=== PATIENT | male | born 1950 | race Caucasian/White ===

== ENCOUNTER 2024-12-08 05:48 | Inpatient (IN) | payer MEDICARE, BC, SELFPAY ==
[2024-12-08] VITALS (14 sets, daily range): BP systolic 114–179; BP diastolic 55–90; PULSE 60–90; RESP 10–29; TEMP 36.1–39.7; O2SAT 93–98; BMI 42.3
--- NOTE | 2024-12-08 06:16 | XR_ITS ---
Examination: AP chest single view Technique one AP portable upright chest single view Date and time: December 08, 2024, 0643 hrs., Comparison December 22, 2019 Indications: Sepsis protocol, sepsis alert today Findings: Diffuse left lung pneumonia. Right perihilar right basilar pneumonia. Mild heart failure with mild enlargement cardiac contour and prominent vascular congestion Cardiac leads satisfactory position Prominent osteopenia Impression: Significant bilateral pneumonia
--- NOTE | 2024-12-08 06:17 | XR_ITS ---
Examination: CTA chest with intravenous contrast 2-D reconstructions 3-D reconstructions, vascular Date and time of exam: December 08, 2024, 0848 hours INDICATIONS: Chest pain shortness of breath today CTDI: vol (mGy) 16.3 DLP: (mGycm) 590 Technique: Multiple axial sections of the thorax have been obtained. 3 mm slice thickness, from below the hemidiaphragms to above the apices of the lungs. Mediastinal and lung density settings have been obtained. 2-D sagittal and coronal reconstructions. 3-D angiographic renderings, 3-D volume renderings, 3D post processing, vascular maximum intensity projections obtained. Contrast administered is 100 cc Isovue-370. Low dose protocols were performed. One or more of the following dose reduction techniques were used; automated exposure control, adjustment of the mA and/or KV according to patient size, use of iterative reconstruction technique. Findings: No thoracic aortic aneurysm dilatation or dissection No pulmonary artery emboli Extensive left lung pneumonia Significant right base pneumonia No visualized liver or splenic lesion Suspicious for tiny gallstones No pancreatic mass Extensive chronic left kidney IMPRESSION: Negative for pulmonary artery emboli Extensive left lung pneumonia Significant right base pneumonia Recommend hepatobiliary sonography to exclude gallstones
[2024-12-08 06:30] LABS: Collection Type, Urine Clean Catch; Squamous Epithelial Cell,Urine 0 /hpf (0-5)
[2024-12-08] MEDS: PIPER/TAZO INJ 4.5 GM in SODIUM CHLORIDE 0.9% (POP) 100 ML IV (06:30)
[2024-12-08 06:32] LABS: Lactate (Lactic Acid) 2.2 mMol/L (0.4-2.0)
--- NOTE | 2024-12-08 06:33 | PD.EDSOB ---
ED SOB =RME/HPI General Chief Complaint: Shortness of Breath/Dyspnea Stated Complaint: SOB Time Seen by Provider: 12/08/24 06:19 Source: patient and EMS Arrival date/time: 12/08/24 05:48 Mode of arrival: EMS Limitations: no limitations RME / HPI RME / HPI Narrative: Patient is a 74-year-old male that seen emerged from concerns for shortness of breath. Patient has a history of CHF takes a diuretic at home, atrial fibrillation currently on Eliquis, hyperlipidemia. Patient has never had a heart attack or cardiac procedures. States that over the last couple days she has had worsening shortness of breath. Patient is chronically oxygen dependent, usually takes 4 L however is requiring 15 L by nonrebreather. Oxygen saturation at the scene was 80%. Was recently diagnosed with COVID. Denies drugs alcohol smoking recent travel sick contacts. No chest pain palpitations abdominal pain dysuria hematuria melena bloody stools. Patient follows with Dr. Chavez in [place]. Related Data Home Medications ?Medication ?Instructions ?Recorded ?Confirmed rosuvastatin 10 mg tablet (Crestor) 10 mg PO QDAY 07/13/18 12/17/19 metoprolol tartrate 25 mg tablet 25 mg PO QDAY 12/17/19 12/17/19 Previous Rx's ?Medication ?Instructions ?Recorded apixaban 2.5 mg tablet (Eliquis) 5 mg (2 x 2.5 mg) PO BID #60 tabs 12/19/19 dexamethasone 6 mg tablet 6 mg PO QDAY #7 tabs 12/19/19 (Decadron) Allergies Allergy/AdvReac Type Severity Reaction Status Date / Time prochlorperazine Allergy Mild Nausea Verified 12/03/19 10:33 ED Exam General Limitations: Present no limitations General appearance: Present alert and other Head Head exam: Present atraumatic and normocephalic Eye Eye exam: Present normal appearance, PERRL and EOMI ENT ENT exam: Present normal exam and normal oropharynx Neck Neck exam: Present normal inspection and full ROM Chest Chest inspection: Present normal inspection and symmetric chest wall rise; Absent tenderness Respiratory Respiratory exam: Present respiratory distress and accessory muscle use; Absent wheezes or stridor Cardiovascular Cardiovascular exam: Present tachycardia Abdominal Exam Abdominal exam: Present soft; Absent distention, tenderness, guarding or rebound Extremities Exam Extremities exam: Present normal inspection Neurological Exam Neurological exam: Present alert, oriented X3 and CN II-XII intact Skin Skin exam: Present warm and diaphoresis Course Orders Category Date Time Status Bedside Blood Glucose NOW Care 12/08/24 06:16 Active Bedside COVID-19 Antigen Test NOW Care 12/08/24 06:18 Completed Bedside Influenza A&B Antigen Test NOW Care 12/08/24 06:[address] Screening NOW Care 12/08/24 06:17 Active Check And Transfer Beader Q4H START 00 Care 12/08/24 06:16 Active Insert IV NOW Care 12/08/24 06:16 Active Strict Intake and Output Routine Care 12/08/24 06:[address] angio chest Stat Exams 12/08/24 06:17 Completed XR chest 1V SEPSIS PROTOCOL Stat Exams 12/08/24 06:16 Completed BNP [B-Type Natriuretic Peptide] Stat Lab 12/08/24 06:19 Completed Blood Culture (Lab) Stat Lab 12/08/24 06:19 Received CBC Stat Lab 12/08/24 06:19 Completed Comprehensive Metabolic Panel Stat Lab 12/08/24 06:19 Completed Lactate (Lactic Acid) Stat Lab 12/08/24 06:19 Completed Lactic Acid, 3 HR Stat Lab 12/08/24 10:05 Completed Partial Thromboplastin Time Stat Lab 12/08/24 06:19 Completed Procalcitonin Stat Lab 12/08/24 06:19 Completed Prothrombin Time with INR Stat Lab 12/08/24 06:19 Completed Troponin I Stat Lab 12/08/24 06:19 Completed Urinalysis Stat Lab 12/08/24 06:23 Completed Urine Culture Stat Lab 12/08/24 06:23 Received Morphine* Inj Med 12/08/24 09:02 Discontinued 4 mg IVP STAT STA Piper/Tazo Inj [Zosyn Inj] 4.5 gm Med 12/08/24 06:16 Discontinued Sodium Chloride 0.9% (Pop) [NS 0.9% mini bag] 100 ml IV STAT Vancomycin Pharmacy to Dose Med 12/08/24 06:16 Discontinued 1 each IV STAT STA Vancomycin/Ns 1 gm Ivpb 200 ml Med 12/08/24 06:30 Discontinued IV X1 Vancomycin/Ns 1 gm Ivpb 200 ml Med 12/08/24 08:10 Discontinued IV X1 EKG (RT) Stat RT 12/08/24 06:16 Ordered Oxygen Delivery NOW RT 12/08/24 06:16 Active Vital Signs Vital signs: Vital Signs Temperature 103.4 F H 12/08/24 06:05 Respiratory Rate 27 H 12/08/24 06:05 Blood Pressure 179/86 H 12/08/24 06:05 Pulse Oximetry (%) 95 12/08/24 06:05 Oxygen Delivery Method Oxy Mask 12/08/24 06:05 Oxygen Flow Rate 15 12/08/24 06:05 Shortness of Breath / Dyspnea [facility] Narrative [facility] Narrative:: Patient is a 74-year-old male is in the emerged from concerns for shortness of breath. Vital signs and exam as listed. Concern for COVID, pneumonia, CHF exacerbation, ACS arrhythmia among others. Ordered labs EKG chest x-ray. Also ordered CT angio of the chest. Patient is compliant with his Eliquis. Patient was immediately placed in resuscitation room, IV access obtained. Patient placed a surveillance system monitor. Patient provided with supplemental oxygen. 6:37a patient satting 98% on nonrebreather. Is breathing more comfortable. GCS 15. 10:58a patient comfortable now on 5 L nasal cannula. Not in distress. Labs with evidence of leukocytosis 15.1, left shift of 93%. Patient did receive broad-spectrum antibiotics. Patient without any significant acute electrolyte abnormalities, no evidence of renal dysfunction. No liver abnormalities. Troponin not elevated, BNP 165, previously normal. Urinalysis with 4 red blood cells, otherwise no signs of infection. LFTs normal. Chest x-ray was significant bibasilar pneumonia. CT angio chest with again redemonstration of pneumonia, recommendation to get right upper quadrant ultrasound for evaluation of gallstones. Patient does not have any abdominal pain, LFTs are normal. Will order ultrasound and consult hospitalist for admission. Patient data External records reviewed:: [facility] previous records and EMS form Clinical information provided by:: patient Social determinants that could affect healthcare access:: none Patient has the following chronic illnesses:: See MDM How is presenting disease/condition affected by chronic disease/condition?: exacerbated by Evaluation data The following diagnostics were reviewed and interpreted by me:: lab results, radiology exam(s) and EKG tracing(s) Lab and/or radiology exams considered but not ordered:: None Interpretation Summary: See MDM Medications / Prescriptions Medications or Prescriptions considered but not ordered:: None Medication administrations:: Medication Administration History Discontinued Medications Piperacillin Sod/Tazobactam (Sod 4.5 gm/ Sodium Chloride) 100 mls @ 200 mls/hr IV STAT STA; Protocol Stop: 12/08/24 06:45 Last Infusion: 12/08/24 07:15 Dose: Infused Documented By: Admin: 12/08/24 06:30 Dose: 200 mls/hr Documented By: JACKY Vancomycin/Sodium Chloride (Vancomycin/Ns 1 Gm Ivpb) 200 mls @ 120 mls/hr IV X1 ONE Stop: 12/08/24 08:09 Last Infusion: 12/08/24 08:35 Dose: Infused Documented By: Admin: 12/08/24 06:55 Dose: 120 mls/hr Documented By: WO Vancomycin/Sodium Chloride (Vancomycin/Ns 1 Gm Ivpb) 200 mls @ 120 mls/hr IV X1 ONE Stop: 12/08/24 09:49 Last Admin: 12/08/24 08:43 Dose: Not Given Documented By: KANDIS Non-Admin Reason: Duplicate Medication on eMAR Morphine Sulfate (Morphine Sulf Inj 4 Mg/Ml Vial) 4 mg IVP STAT STA Stop: 12/08/24 09:03 Last Admin: 12/08/24 09:09 Dose: 4 mg Documented By: KANDIS Pharmacy Consult (Vancomycin Pharmacy To Dose 1 Each Each) 1 each IV STAT STA Stop: 12/08/24 06:17 Last Admin: 12/08/24 07:31 Dose: Not Given Documented By: KANDIS Non-Admin Reason: Duplicate Medication on eMAR See above Consultations Consultation(s) initiated? (list below): Yes Consultation #1 (Physician, Specialty, Details): see above Diagnosis Shortness of Breath Differential Diagnosis: other (see mdm ) Most likely diagnosis given after review of the tests above:: sepsis, pneumonia Admission Request Was there a request for admission?: Yes Admission Attestation Admission request attestation: Discussed case with Dr. Solis Hospitalist service regarding admission. Discussed patients ED course, exam findings, labs, and radiology results. The Hospitalist [agrees] to accept the patient for admission. Disposition Plan Disposition Plan: Admit Critical Care Time Critical Care Time Critical Care Time: Yes Total Critical Care Time (min.): 45 Attestation: I spent 45 minutes of critical care time with this patient not including reportable procedures. There was an acute impairment of an organ system with a high probability of imminent or life threatening deterioration in the patient's condition. Interventions and changes required in the course of therapy are located in the chart. Time involved was spent in direct patient care, reviewing ancillary data, old records, consulting with decision makers, EMS, other doctors, giving orders and documenting. Discharge Plan Prescriptions/Referrals Prescriptions/Med Rec: No Action metoprolol tartrate 25 mg Tablet 25 mg PO QDAY Rx Instructions: last taken about a month ago, run out. Pt not very sure of dose and if it was tartrate or succinate. He said he was suppose to see Dr. Mccloud for follow up but because of the waters virus wasn't able to. Eliquis 2.5 mg Tablet 5 mg PO BID Qty: 60 0RF dexamethasone [Decadron] 6 mg tablet 6 mg PO QDAY Qty: 7 0RF rosuvastatin [Crestor] 10 mg Tablet 10 mg PO QDAY Referrals: Irwin Wheeler MD [Primary Care Provider, Family Practice] - In 1 week Patient/Caregiver Discharge Instructions Print Language: Vietnamese
[2024-12-08 06:36] LABS: Bilirubin,Urine Negative (Negative); Blood,Urine 1+ (Negative); Clarity,Urine Clear (Clear/Hazy); Color,Urine Drk-Yellow (Lt Yel-Yel); Glucose, Urine Negative (Negative); Ketones,Urine Negative (Negative); Leukocyte Esterase,Urine Negative (Negative); Nitrite,Urine Negative (Negative); PH,Urine 6.0 (5.0-7.0); Protein,Urine 1+ (Neg - Trace); RBC,Urine 4 /hpf (0-3); Specific Gravity,Urine 1.021 (1.001-1.035); Urobilinogen,Urine Negative mg/dL (0.0-1.0); WBC,Urine 1 /hpf (0-5)
[2024-12-08 06:38] LABS: Basophils # (Auto) 0.0 Thou/mm3 (0.0-0.2); Basophils % (Auto) 0 % (0-2.5); Eosinophils # (Auto) 0.0 Thou/mm3 (0.0-0.5); Eosinophils % (Auto) 0 % (0-10); Hematocrit 38.7 % (41.0-53.0); Hemoglobin 13.0 g/dL (13.5-16.0); Immature Granulocytes Auto 0.07 Thou/mm3 (0.00-0.00); Lymphocytes # (Auto) 0.4 Thou/mm3 (1.0-4.8); Lymphocytes % (Auto) 3 % (10-50); Mean Corpuscular HGB Conc 33.6 g/dl (31.0-37.0); Mean Corpuscular Hemoglobin 31.1 pg (25.0-35.0); Mean Corpuscular Volume 93 fL (80-100); Monocytes # (Auto) 0.7 Thou/mm3 (0.0-0.8); Monocytes % (Auto) 4 % (0-12); Neutrophils # (Auto) 13.9 Thou/mm3 (1.8-7.7); Neutrophils % (Auto) 93 % (37-80); Nucleated Red Blood Cell # 0.00 Thou/mm3 (0.00-0.00); Nucleated Red Blood Cell % 0 /100 WBC (0); Platelet Count 251 Thou/mm3 (140-440); RDW Standard Deviation 47.5 fL (35.1-43.9); Red Blood Count 4.18 Miln/mm3 (4.50-5.90); White Blood Count 15.1 Thou/mm3 (3.8-10.6)
[2024-12-08 06:52] LABS: INR 1.1 (0.9-1.3); Partial Thromboplastin Time 28.3 Seconds (22.0-36.0); Prothrombin Time 11.8 Seconds (9.0-12.2)
[2024-12-08] MEDS: VANCOMYCIN/NS 1 GM IVPB 200 ML IV (06:55)
[2024-12-08 07:01] LABS: Alanine Aminotransferase 18 U/L (10-49); Albumin, Serum 4.3 gm/dL (3.4-4.8); Albumin/Globulin Ratio 1.5 (1.2-2.2); Alkaline Phosphatase 59 U/L (46-116); Anion Gap 9 (7-16); Aspartate Amino Transferase 33 U/L (0-34); BUN/Creatinine Ratio 13 Ratio (12-20); Bilirubin,Total 0.4 mg/dL (0.3-1.2); Blood Urea Nitrogen 13 mg/dL (9-23); Calcium 10.3 mg/dL (8.3-10.6); Calcium (Corrected) 10.3 mg/dL (8.5-10.1); Carbon Dioxide 27.6 mMol/L (20.0-31.0); Chloride 98 mMol/L (98-107); Creatinine (Component) 1.0 mg/dL (0.6-1.3); Estimated Creatinine Clearance 93.3 mL/min (>60); Globulin 2.9 gm/dL (2.3-3.5); Glucose 202 mg/dL (74-106); Osmolality,Calculated 276 (275-295); Potassium 3.8 mMol/L (3.4-5.1); Procalcitonin 1.06 ng/ml (0.0-0.49); Sodium 135 mMol/L (136-145); Total Protein 7.2 gm/dL (5.7-8.2); Troponin I 0.038 ng/mL (0.0-0.045); eGFR > 60 See Note
[2024-12-08 07:04] LABS: B-Type Natriuretic Peptide 165 pg/mL (0-100)
--- NOTE | 2024-12-08 07:57 | PC.NURSE ---
Report received from pm nurse, patient lying in gurney in semifowler's position. Patient alert and oriented x 3 to er with c/o increased shortness of breath x 3 days. Patient c/o body aches and increases sob x 2-3 days, patient denies cough , skin is slightly pale, cool and diaphoretic, RR 28bpm. Patient awaiting ct exam, call light within reach.
[2024-12-08] MEDS: MORPHINE SULF INJ 4 MG/ML VIAL IVP (09:09)
[2024-12-08 09:26] LABS: Reflex Lactate? Y
[2024-12-08 10:14] LABS: Lactic Acid, 3 HR 1.5 mMol/L (0.4-2.0)
--- NOTE | 2024-12-08 11:00 | XR_ITS ---
Examination: Abdomen sonogram, Limited Date and time of exam: December 08, 2024 1343 hours INDICATIONS: CT examination chest today suspicious for tiny gallstones Technique: Real-time servin scale transabdominal sonographic images of the upper abdomen obtained. Findings: No definite gallstones Gallbladder is contracted Gallbladder wall 0.4 cm Common bile duct 0.4 cm Pancreas 3.2 cm Liver 20.7 cm fatty infiltration Portal vein measures 13 mm Normal hepatopedal portal venous flow Patent IVC IMPRESSION: Recommend repeating the gallbladder portion of the study with fasting Moderate hepatomegaly
--- NOTE | 2024-12-08 12:01 | PD.RESHP ---
Documentation for date of: 12/08/24 [facility] History of Present Illness History of present illness: Harris Ibrahim is a 74-year-old male with a past medical history of atrial fibrillation status post ablation and pacemaker on Eliquis, [id number] smoking history (quit 20 years ago), on nocturnal oxygen, chronic pain from previous spinal surgery, hypertension, hyperlipidemia who presented for shortness of breath. For the last 3 days patient has experienced progressive shortness of breath, fever, chills, and sore throat. He states that his had been sick with COVID and denies any recent travel. In the ED, BP 179/86, respiratory rate 27, temp of 103.4 ?F, and saturating 95% on 15 L oxy mask. Labs showed WBC 15.1, Pro-Imer 1.06, lactate of 2.2. Bedside COVID test positive. CXR showed significant bilateral pneumonia, CTA chest showed extensive left lung and right base pneumonia but negative for PE. Abdominal ultrasound showed moderate hepatomegaly. Blood and urine cultures taken, given 1 dose of Vanco and Zosyn in ED as well as morphine. Admitted for acute hypoxic respiratory failure secondary to COVID-pneumonia. PMHx: atrial fibrillation status post ablation and pacemaker on Eliquis, [id number] smoking history (quit 20 years ago), chronic pain from previous spinal surgery, hypertension, hyperlipidemia Medications: unsure, pending med rec SHx: [id number] smoking history but quit 20 years ago, previous alcohol consumption, no elicit drug use PSHx: previous spinal surgeries now on opioid medications at home Review of Systems Review of Systems Systems Reviewed: All systems reviewed, normal except as documented Exam Vital Signs Temp Pulse Resp BP Pulse Ox O2 Del Method O2 Flow Rate 98.6 F 61 22 H 122/55 L 97 Oxy Mask 5 12/08/24 11:23 12/08/24 11:23 12/08/24 11:23 12/08/24 11:23 12/08/24 11:23 12/08/24 11:12/08/24 11:23 Narrative Exam General: AOx3, mild distress but able to speak full sentences, diaphoretic and on oxymask HEENT: NC/AT, mucous membranes moist, bilateral sclera anicteric Cardiovascular: regular rate and rhythm, S1/S2 present, no murmurs appreciated Pulmonary: clear to auscultation bilaterally, no rales/rhonchi/wheezes Abdominal: obese, soft, non-tender, non-distended, no rebound/guarding, normal bowel sounds present Musculoskeletal: normal ROM, no peripheral edema Skin: warm and dry, intact, no rashes Neuro: CN II-XII intact, no focal deficits Results: Labs 12/09/24 05:36 12/09/24 05:36 Labs: Short CBC 12/08/24 Range/Units 06:19 WBC 15.1 H (3.8-10.6) Thou/mm3 Hgb 13.0 L (13.5-16.0) g/dL Hct 38.7 L (41.0-53.0) % Plt Count 251 (140-440) Thou/mm3 BMP 12/08/24 06:19 Sodium 135 L Potassium 3.8 Chloride 98 Carbon Dioxide 27.6 BUN 13 Creatinine 1.0 Glucose 202 H Calcium 10.3 Cardiac Enzymes 12/08/24 Range/Units 06:19 Troponin I 0.038 (0.0-0.045) ng/mL Liver Function 12/08/24 Range/Units 06:19 Total Bilirubin 0.4 (0.3-1.2) mg/dL AST 33 (0-34) U/L ALT 18 (10-49) U/L Alkaline Phosphatase 59 (46-116) U/L Albumin 4.3 (3.4-4.8) gm/dL Urine 12/08/24 Range/Units 06:23 Urine Color Drk-Yellow A (Lt Yel-Yel) Urine Clarity Clear (Clear/Hazy) Urine pH 6.0 (5.0-7.0) Ur Specific [place] 1.021 (1.001-1.035) Urine Protein 1+ A (Neg - Trace) Urine Glucose (UA) Negative (Negative) Quality Measures Quality Measures VTE prophylaxis Advance care planning discussed with:: patient Medications Home Medications and Allergies Home Medications ?Medication ?Instructions ?Recorded ?Confirmed ?Type rosuvastatin 10 mg tablet (Crestor) 10 mg PO QDAY 07/13/18 12/08/24 History apixaban 5 mg tablet (Eliquis) 5 mg PO Q12H 12/08/24 12/08/24 History hydralazine 50 mg tablet 50 mg PO BID 12/08/24 12/08/24 History olmesartan 20 mg tablet 20 mg PO DAILY 12/08/24 12/08/24 History oxycodone 30 mg tablet 30 mg PO 5 TIMES DAILY 12/08/24 12/08/24 History prednisone 10 mg tablet 10 mg PO 12/08/24 History tramadol 300 mg tablet,extended 300 mg PO Q24H 12/08/24 12/08/24 History release 24 hr Allergies Allergy/AdvReac Type Severity Reaction Status Date / Time prochlorperazine Allergy Mild Nausea Verified 12/03/19 10:33 Visit Medications Acetaminophen (Acetaminophen 325 Mg Tablet) 650 mg PO Q6H PRN PRN Reason: PAIN OR FEVER > 100.4 Stop: 01/07/25 11:50 Remdesivir 200 mg/ Sodium (Chloride) 250 mls @ 250 mls/hr IV X1 ONE; Protocol Stop: 12/08/24 12:55 Remdesivir 100 mg/ Sodium (Chloride) 100 mls @ 100 mls/hr IV Q24H NR; Protocol Stop: 12/12/24 14:59 Ondansetron HCl (Ondansetron Inj 2 Mg/Ml Inj 2 Ml) 4 mg IVP Q6H PRN; Protocol PRN Reason: NAUSEA OR VOMITING Stop: 01/07/25 11:50 Discontinued Medications Piperacillin Sod/Tazobactam (Sod 4.5 gm/ Sodium Chloride) 100 mls @ 200 mls/hr IV STAT STA; Protocol Stop: 12/08/24 06:45 Last Infusion: 12/08/24 07:15 Dose: Infused Vancomycin/Sodium Chloride (Vancomycin/Ns 1 Gm Ivpb) 200 mls @ 120 mls/hr IV X1 ONE Stop: 12/08/24 08:09 Last Infusion: 12/08/24 08:35 Dose: Infused Vancomycin/Sodium Chloride (Vancomycin/Ns 1 Gm Ivpb) 200 mls @ 120 mls/hr IV X1 ONE Stop: 12/08/24 09:49 Last Admin: 12/08/24 08:43 Dose: Not Given Morphine Sulfate (Morphine Sulf Inj 4 Mg/Ml Vial) 4 mg IVP STAT STA Stop: 12/08/24 09:03 Last Admin: 12/08/24 09:09 Dose: 4 mg Pharmacy Consult (Vancomycin Pharmacy To Dose 1 Each Each) 1 each IV STAT STA Stop: 12/08/24 06:17 Last Admin: 12/08/24 07:31 Dose: Not Given Assessment & Plan Plan Harris Ibrahim is a 74-year-old male with a past medical history of atrial fibrillation status post ablation and pacemaker on Eliquis, [id number] smoking history (quit 20 years ago), on nocturnal oxygen, chronic pain from previous spinal surgery, hypertension, hyperlipidemia who is admitted for acute hypoxic respiratory failure secondary to COVID-pneumonia. #Acute hypoxic respiratory failure secondary to #COVID-pneumonia #Superimposed Bacterial pneumonia #[id number] smoking history on nocturnal oxygen Last 3 days patient has experienced progressive shortness of breath, fever, chills, and sore throat. He states that his had been sick with COVID and denies any recent travel. In the ED, BP 179/86, respiratory rate 27, temp of 103.4 ?F, and saturating 95% on 15 L oxy mask. Labs showed WBC 15.1, Pro-Imer 1.06, lactate of 2.2. Bedside COVID test positive. CXR showed significant bilateral pneumonia, CTA chest showed extensive left lung and right base pneumonia but negative for PE. ? Remdesivir 200 mg x 1, 100 mg IV daily after ? Decadron 6 mg IV daily ? Rocephin and azithromycin for superimposed bacterial infection ? Follow-up blood cultures ? Supplemental oxygen as needed #Atrial fibrillation status post ablation and pacemaker Currently rate less than 110. 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 ? Eliquis 5 mg twice daily ? Pending med rec for rate control medications #Hyperglycemia #Type 2 diabetes mellitus ? Follow-up A1c ? SSI given that patient is on high-dose steroids #Hyperlipidemia ? Pending med rec #Chronic Back pain - Resumed home analgesics Hospital management: Disposition: on remdesivir/decadron and rocephin/azithro for AHRF secondary to COVID pneumonia Fluids: not indicated Diet: cardiac Lines: PIV DVT prophylaxis: eliquis 5 mg PO BID GI prophylaxis: PPI given that patient is on high-dose steroids CODE STATUS: full code ----- Plan discussed with attending physician Dr. Kemi Cee MD PGY-2 Internal Medicine Attending Provider Attestation/Addendum I attest that I was physically present for the evaluation, physical examination, lab and imaging review of the patient with the residents. I discussed the case with the residents and agree with the findings and plans of care as documented above. After examination of the patient and review of the clinical data I feel that this patient needs admission to the hospital for further treatment/evaluation. Max Mcmullen MD
--- NOTE | 2024-12-08 12:30 | PC.NURSE ---
Called pharmacy to bring Remdesiver to er not in our er pyxis,
[2024-12-08] MEDS: DEXAMETHASONE SOD PHOS INJ 4 MG/ML VIAL 6 MG IV (12:37)
[2024-12-08] MEDS: cefTRIAXone/D5w 1gm IV premix 1 GM/50 ML BAG IV (12:37)
[2024-12-08] MEDS: AZITHROMYCIN INJ 500 MG in SODIUM CHLORIDE 0.9% 250 ML 250 ML 250 MG IV (13:26)
[2024-12-08] MEDS: oxyCODONE HCL 5 MG IR TAB 30 MG PO ×2 (13:41→20:43)
[2024-12-08] MEDS: REMDESIVIR INJ 200 MG in SODIUM CHLORIDE 0.9% 250 ML 250 ML 250 MG IV (14:29)
[2024-12-08] MEDS: INSULIN LISPRO (AdmeLOG) 1 UNIT/0.01 ML UNIT SC (17:06)
[2024-12-08] MEDS: APIXABAN 2.5 MG TABLET 5 MG PO (20:45)
[2024-12-08] MEDS: ATORVASTATIN CALCIUM 20 MG TABLET 40 MG PO (20:45)
[2024-12-09] VITALS (12 sets, daily range): BP systolic 116–174; BP diastolic 66–90; PULSE 61–115; RESP 15–22; TEMP 35.9–36.9; O2SAT 92–97; BMI 43.4
[2024-12-09] MEDS: oxyCODONE HCL 5 MG IR TAB 30 MG PO ×4 (05:48→23:52)
[2024-12-09 05:58] LABS: Basophils # (Auto) 0.0 Thou/mm3 (0.0-0.2); Basophils % (Auto) 0 % (0-2.5); Eosinophils # (Auto) 0.0 Thou/mm3 (0.0-0.5); Eosinophils % (Auto) 0 % (0-10); Hematocrit 36.3 % (41.0-53.0); Hemoglobin 12.2 g/dL (13.5-16.0); Immature Granulocytes Auto 0.09 Thou/mm3 (0.00-0.00); Lymphocytes # (Auto) 0.9 Thou/mm3 (1.0-4.8); Lymphocytes % (Auto) 5 % (10-50); Mean Corpuscular HGB Conc 33.6 g/dl (31.0-37.0); Mean Corpuscular Hemoglobin 31.4 pg (25.0-35.0); Mean Corpuscular Volume 93 fL (80-100); Monocytes # (Auto) 0.6 Thou/mm3 (0.0-0.8); Monocytes % (Auto) 3 % (0-12); Neutrophils # (Auto) 15.7 Thou/mm3 (1.8-7.7); Neutrophils % (Auto) 91 % (37-80); Nucleated Red Blood Cell # 0.00 Thou/mm3 (0.00-0.00); Nucleated Red Blood Cell % 0 /100 WBC (0); Platelet Count 241 Thou/mm3 (140-440); RDW Standard Deviation 47.3 fL (35.1-43.9); Red Blood Count 3.89 Miln/mm3 (4.50-5.90); White Blood Count 17.2 Thou/mm3 (3.8-10.6)
[2024-12-09 06:19] LABS: Anion Gap 7 (7-16); BUN/Creatinine Ratio 14 Ratio (12-20); Blood Urea Nitrogen 11 mg/dL (9-23); Calcium 9.2 mg/dL (8.3-10.6); Carbon Dioxide 29.2 mMol/L (20.0-31.0); Cardiac Risk Estimate 1.8 RATIO (4.0-6.7); Chloride 100 mMol/L (98-107); Cholesterol 110 mg/dL (132-200); Creatinine (Component) 0.8 mg/dL (0.6-1.3); Estimated Creatinine Clearance 118.4 mL/min (>60); Glucose 175 mg/dL (74-106); Glucose Estimated Average 120 mg/dL (80-131); HDL Cholesterol 62 mg/dL (40-60); Hemoglobin A1C 5.8 % Hgb (4.8-6.0); LDL Cholesterol,Calculated 38 mg/dL (0-130); Magnesium 1.8 mg/dL (1.6-2.6); Osmolality,Calculated 275 (275-295); Phosphorous 2.5 mg/dL (2.4-5.1); Potassium 4.5 mMol/L (3.4-5.1); Sodium 136 mMol/L (136-145); Thyroid Stimulating Hormone 0.27 uIU/mL (0.55-4.78); Triglycerides 48 mg/dL (30-150); eGFR > 60 See Note
[2024-12-09] MEDS: APIXABAN 2.5 MG TABLET 5 MG PO ×2 (08:33→21:04)
[2024-12-09] MEDS: cefTRIAXone/D5w 1gm IV premix 1 GM/50 ML BAG IV (08:33)
[2024-12-09] MEDS: INSULIN LISPRO (AdmeLOG) 1 UNIT/0.01 ML UNIT SC ×4 (08:33→21:05)
[2024-12-09] MEDS: LOSARTAN POTASSIUM 25 MG TABLET 100 MG PO (08:34)
[2024-12-09] MEDS: DEXAMETHASONE SOD PHOS INJ 4 MG/ML VIAL 6 MG IV (08:34)
[2024-12-09] MEDS: AZITHROMYCIN INJ 500 MG in SODIUM CHLORIDE 0.9% 250 ML 250 ML 250 MG IV (09:43)
--- NOTE | 2024-12-09 10:14 | PC.SS ---
Addendum entered by JAEL Nye 12/09/24 10:19: SS update: on oxygen and IV antibiotics. Original Note: Patient is a 74 year old male presenting to the hospital for COVID pneumonia. DREDGE DECKHAND made telephone contact with patient?s Lili PH: [phone]. DREDGE DECKHAND explained role and reason for phone call. Lili stated that in case patient is unable to make medical decisions on his own she will make them for him. Patient?s Lili stated that patient has wheelchair at home that he uses occasionally. He is on 3-4L of oxygen at home supplied by [facility]. Patient is retired, uses [facility], PCP is Dr. Wheeler last appointment was in October. Patient?s stated that he goes to the doctor every month. Lili stated that once medically clear patient will return home and family will provide transportation. PCP: Dr. Wheeler Decision maker: Lili PH: [phone] D/c: Home
[2024-12-09 12:27] LABS: Free T4 (Free Thyroxine) 1.43 ng/dL (0.89-1.76)
[2024-12-09] MEDS: VANCOMYCIN/NS 1 GM IVPB 200 ML IV (13:01)
--- NOTE | 2024-12-09 13:26 | ESPR_ITS ---
Documentation for date of: 12/09/24 Subjective Subjective Interval history: No acute overnight events. Seen and examined at bedside and patient resting comfortably in bed. Previously on 7 L oxy mask and currently on 5 L nasal cannula saturating 93%. Denies any fever or chills overnight and states that his shortness of breath is improving. Will continue current management other than increasing SSI scale given increasing glucose as patient is on high-dose steroids. Also resumed patient's home oxycodone and tramadol but at lower doses for the time being. Exam Vital Signs Temp Pulse Resp BP Pulse Ox O2 Del Method O2 Flow Rate 97.4 F 61 18 157/74 H 96 Nasal Cannula 4 12/09/24 12:00 12/09/24 12:10 12/09/24 12:10 12/09/24 12:00 12/09/24 12:10 12/09/24 12:00 12/09/24 12:10 Narrative Exam General: AOx3, mild distress but able to speak full sentences, diaphoretic and on oxymask HEENT: NC/AT, mucous membranes moist, bilateral sclera anicteric Cardiovascular: regular rate and rhythm, S1/S2 present, no murmurs appreciated Pulmonary: clear to auscultation bilaterally, no rales/rhonchi/wheezes Abdominal: obese, soft, non-tender, non-distended, no rebound/guarding, normal bowel sounds present Musculoskeletal: normal ROM, no peripheral edema Skin: warm and dry, intact, no rashes Neuro: CN II-XII intact, no focal deficits Objective Labs 12/11/24 05:39 12/11/24 05:39 Labs: Laboratory Results - last 24 hr 12/09/24 05:36 WBC 17.2 H RBC 3.89 L Hgb 12.2 L Hct 36.3 L MCV 93 MCH 31.4 MCHC 33.6 RDW Std Deviation 47.3 H Plt Count 241 Neut % (Auto) 91 H Lymph % (Auto) 5 L [place] % (Auto) 3 Eos % (Auto) 0 Baso % (Auto) 0 Neut # (Auto) 15.7 H Lymph # (Auto) 0.9 L [place] # (Auto) 0.6 Eos # (Auto) 0.0 Baso # (Auto) 0.0 Immature Gran # (Auto) 0.09 H Absolute Nucleated RBC 0.00 Immature Gran % 1 H Nucleated RBC % 0 Sodium 136 Potassium 4.5 D Chloride 100 Carbon Dioxide 29.2 Anion Gap 7 BUN 11 Creatinine 0.8 Estim Creat Clear Calc 118.4 eGFR > 60 BUN/Creatinine Ratio [address] Glu mg/dL 120 Hemoglobin A1c 5.8 Calculated Osmolality 275 Calcium 9.2 Phosphorus 2.5 Magnesium 1.8 Triglycerides 48 Cholesterol 110 L LDL Cholesterol, Calc 38 HDL Cholesterol 62 H Cholesterol/HDL Ratio 1.8 L TSH 0.27 L Free T4 1.43 Quality Measures Quality Measures VTE prophylaxis Advance care planning discussed with:: patient Assessment & Plan Assessment Current Active Medications: Generic Name Dose Route Start Last Admin Trade Name Freq PRN Reason Stop Dose Admin Acetaminophen 650 mg 12/08/24 11:51 Acetaminophen 325 Mg Tablet PO 01/07/25 11:50 Q6H PRN PAIN OR FEVER > 100.4 Albuterol/Ipratropium 3 ml 12/08/24 16:13 Albuterol/Ipratropium (Duoneb) Rt [place] 3 Ml Nebu INH 01/07/25 18:59 Q6HRRT PRN SHORTNESS OF BREATH Apixaban 5 mg 12/08/24 21:00 12/09/24 08:33 Apixaban 2.5 Mg Tablet PO 01/07/25 20:59 5 mg BID ZAHIDA Administration Atorvastatin Calcium 40 mg 12/08/24 21:00 12/08/24 20:45 Atorvastatin Calcium 20 Mg Tablet PO 01/07/25 20:59 40 mg HS ZAHIDA Administration Protocol Dexamethasone Sodium Phosphate 6 mg 12/08/24 12:30 12/09/24 08:34 Dexamethasone Sod Phos Inj 4 Mg/Ml Vial IV 12/18/24 12:29 6 mg DAILY ZAHIDA Administration Protocol Dextrose 25 ml 12/08/24 12:00 Dextrose 50%-Water Inj 50 Ml Syringe IV 01/07/25 11:59 Q15MIN PRN BG 50-70 responsive npo pt Dextrose 50 ml 12/08/24 12:00 Dextrose 50%-Water Inj 50 Ml Syringe IV 01/07/25 11:59 Q15MIN PRN BG <50 OR BG <70 & pt unresponsive Glucagon 1 mg 12/08/24 12:00 Glucagon Inj 1 Mg Vial IM Q15MIN PRN BG <70, and no IV access Hydralazine HCl 50 mg 12/09/24 09:00 12/09/24 09:43 Hydralazine Hcl 25 Mg Tablet PO 01/08/25 08:59 50 mg BID ZAHIDA Administration Remdesivir 100 mg/ Sodium 100 mls @ 100 mls/hr 12/09/24 14:00 Chloride IV 12/12/24 14:59 Q24H NR Protocol Ceftriaxone Sodium/Dextrose 1 gm in 50 mls @ 100 mls/hr 12/08/24 12:23 12/09/24 08:33 Rocephin/D5w 1gm Iv Premix IV 12/15/24 12:22 100 mls/hr QDAY ZAHIDA Administration Azithromycin 500 mg/ Sodium 250 mls @ 250 mls/hr 12/09/24 09:00 12/09/24 09:43 Chloride IV 12/15/24 12:22 250 mls/hr QDAY ZAHIDA Administration Vancomycin/Sodium Chloride 200 mls @ 120 mls/hr 12/09/24 12:00 12/09/24 13:01 Vancomycin/Ns 1 Gm Ivpb IV 12/09/24 13:39 120 mls/hr X1 ONE Administration Vancomycin HCl/Dextrose 300 mls @ 120 mls/hr 12/09/24 22:00 Vancomycin/D5w 1500 Mg Ivpb IV 12/16/24 21:59 BID@1000,2200 ZAHIDA Insulin Human Lispro 0 unit 12/09/24 08:39 12/09/24 11:53 Insulin Lispro (Admelog) 1 Unit/0.01 Ml Unit SC 01/08/25 07:29 3 unit ACHS ZAHIDA Administration Protocol Losartan Potassium 100 mg 12/09/24 09:00 12/09/24 08:34 Losartan Potassium 25 Mg Tablet PO 01/08/25 08:59 100 mg DAILY ZAHIDA Administration Protocol Ondansetron HCl 4 mg 12/08/24 11:51 Ondansetron Inj 2 Mg/Ml Inj 2 Ml IVP 01/07/25 11:50 Q6H PRN NAUSEA OR VOMITING Protocol Oxycodone HCl 30 mg 12/09/24 11:17 12/09/24 11:52 Oxycodone Hcl 5 Mg Ir Tab PO 12/14/24 10:37 30 mg Q6HR PRN Administration chronic pain Pantoprazole Sodium 40 mg 12/09/24 09:00 12/09/24 08:33 Pantoprazole Inj 40 Mg Vial IVP 01/08/25 08:59 40 mg QDAY ZAHIDA Administration Pharmacy Consult 1 each 12/09/24 12:00 Vancomycin Pharmacy To Dose 1 Each Each IV 01/08/25 11:59 QDAY PRN CONSULT Tramadol HCl 100 mg 12/09/24 11:45 12/09/24 11:52 Tramadol Hcl 50 Mg Tablet PO 12/14/24 11:44 100 mg TID ZAHIDA Administration Plan Harris Ibrahim is a 74-year-old male with a past medical history of atrial fibrillation status post ablation and pacemaker on Eliquis, [id number] smoking history (quit 20 years ago), on nocturnal oxygen, chronic pain from previous spinal surgery, hypertension, hyperlipidemia who is admitted for acute hypoxic respiratory failure secondary to COVID-pneumonia. #Acute hypoxic respiratory failure secondary to #COVID-pneumonia #Superimposed Bacterial pneumonia #[id number] smoking history on nocturnal oxygen Last 3 days patient has experienced progressive shortness of breath, fever, chills, and sore throat. He states that his had been sick with COVID and denies any recent travel. In the ED, BP 179/86, respiratory rate 27, temp of 103.4 ?F, and saturating 95% on 15 L oxy mask. Labs showed WBC 15.1, Pro-Imer 1.06, lactate of 2.2. Bedside COVID test positive. CXR showed significant bilateral pneumonia, CTA chest showed extensive left lung and right base pneumonia but negative for PE. ? Remdesivir 200 mg x 1, 100 mg IV daily after ? Decadron 6 mg IV daily ? Rocephin and azithromycin for superimposed bacterial infection ? Follow-up blood cultures ? Supplemental oxygen as needed #Atrial fibrillation status post ablation and pacemaker Currently rate less than 110. 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 ? Eliquis 5 mg twice daily #Hyperglycemia A1c 5.7% ? SSI given that patient is on high-dose steroids #Hyperlipidemia ? Atorvastatin 40 mg HS #Chronic back pain ? Resumed home analgesics Hospital management: Disposition: on remdesivir/decadron and rocephin/azithro for AHRF secondary to COVID pneumonia Fluids: not indicated Diet: cardiac Lines: PIV DVT prophylaxis: eliquis 5 mg PO BID GI prophylaxis: PPI given that patient is on high-dose steroids CODE STATUS: full code ----- Plan discussed with attending physician Dr. Kemi Cee MD PGY-2 Internal Medicine Attending Provider Attestation/Addendum I attest that I was physically present for the evaluation, physical examination, lab and imaging review of the patient with the residents. I discussed the case with the residents and agree with the findings and plans of care as documented above. Max Mcmullen MD
[2024-12-09] MEDS: REMDESIVIR INJ 100 MG in SODIUM CHLORIDE 0.9% 100 ML IV (15:02)
[2024-12-09] MEDS: ATORVASTATIN CALCIUM 20 MG TABLET 40 MG PO (21:04)
[2024-12-09] MEDS: POLYETHYLENE GLYCOL 17 GM PACKET PO (21:04)
[2024-12-09] MEDS: VANCOMYCIN/D5W 1500 MG IVPB 300 ML 120 MG IV (22:04)
[2024-12-09] MEDS: guaiFENesin SYRUP 200 MG/10 ML UDC 100 MG PO (23:51)
[2024-12-10] VITALS (15 sets, daily range): BP systolic 139–189; BP diastolic 83–99; PULSE 60–73; RESP 15–19; TEMP 35.9–36.4; O2SAT 91–98; BMI 43.9
[2024-12-10] MEDS: oxyCODONE HCL 5 MG IR TAB 30 MG PO ×3 (05:59→18:03)
[2024-12-10 06:05] LABS: Basophils # (Auto) 0.0 Thou/mm3 (0.0-0.2); Basophils % (Auto) 0 % (0-2.5); Eosinophils # (Auto) 0.0 Thou/mm3 (0.0-0.5); Eosinophils % (Auto) 0 % (0-10); Hematocrit 35.4 % (41.0-53.0); Hemoglobin 11.8 g/dL (13.5-16.0); Immature Granulocytes Auto 0.19 Thou/mm3 (0.00-0.00); Lymphocytes # (Auto) 1.0 Thou/mm3 (1.0-4.8); Lymphocytes % (Auto) 6 % (10-50); Mean Corpuscular HGB Conc 33.3 g/dl (31.0-37.0); Mean Corpuscular Hemoglobin 31.6 pg (25.0-35.0); Mean Corpuscular Volume 95 fL (80-100); Monocytes # (Auto) 0.8 Thou/mm3 (0.0-0.8); Monocytes % (Auto) 4 % (0-12); Neutrophils # (Auto) 15.4 Thou/mm3 (1.8-7.7); Neutrophils % (Auto) 89 % (37-80); Nucleated Red Blood Cell # 0.00 Thou/mm3 (0.00-0.00); Nucleated Red Blood Cell % 0 /100 WBC (0); Platelet Count 281 Thou/mm3 (140-440); RDW Standard Deviation 48.2 fL (35.1-43.9); Red Blood Count 3.74 Miln/mm3 (4.50-5.90); White Blood Count 17.4 Thou/mm3 (3.8-10.6)
[2024-12-10 06:39] LABS: Anion Gap 7 (7-16); BUN/Creatinine Ratio 15 Ratio (12-20); Blood Urea Nitrogen 18 mg/dL (9-23); Calcium 9.7 mg/dL (8.3-10.6); Carbon Dioxide 32.0 mMol/L (20.0-31.0); Chloride 98 mMol/L (98-107); Creatinine (Component) 1.2 mg/dL (0.6-1.3); Estimated Creatinine Clearance 78.9 mL/min (>60); Glucose 169 mg/dL (74-106); Magnesium 2.3 mg/dL (1.6-2.6); Osmolality,Calculated 279 (275-295); Phosphorous 3.2 mg/dL (2.4-5.1); Potassium 4.8 mMol/L (3.4-5.1); Sodium 137 mMol/L (136-145); eGFR > 60 See Note
[2024-12-10] MEDS: INSULIN LISPRO (AdmeLOG) 1 UNIT/0.01 ML UNIT SC ×4 (07:45→20:48)
[2024-12-10] MEDS: cefTRIAXone/D5w 1gm IV premix 1 GM/50 ML BAG IV (08:49)
[2024-12-10] MEDS: DEXAMETHASONE SOD PHOS INJ 4 MG/ML VIAL 6 MG IV (08:49)
[2024-12-10] MEDS: APIXABAN 2.5 MG TABLET 5 MG PO ×2 (08:50→20:47)
[2024-12-10] MEDS: AZITHROMYCIN INJ 500 MG in SODIUM CHLORIDE 0.9% 250 ML 250 ML 250 MG IV (08:50)
[2024-12-10] MEDS: LOSARTAN POTASSIUM 25 MG TABLET 100 MG PO (08:50)
--- NOTE | 2024-12-10 09:16 | ESPR_ITS ---
Documentation for date of: 12/10/24 Subjective Subjective Interval history: No acute overnight events. Seen and examined at bedside and patient states he feels like his breathing is improved. Denies any fevers, chills, sweats. Was on 5 L nasal cannula and saturating 95 to 96% but after removing supplemental oxygen he continued to saturate 93 to 94%. Repeat blood cultures showing no growth at this time and will continue current management for his pneumonia. Otherwise, blood sugars and WBCs remain elevated secondary to high-dose steroids but the patient clinically improving. Will continue to monitor and anticipate discharge in the next 24 to 48 hours. Exam Vital Signs Temp Pulse Resp BP Pulse Ox O2 Del Method O2 Flow Rate 97.0 F 60 15 175/88 H 95 Nasal Cannula 5 12/10/24 08:00 12/10/24 08:50 12/10/24 08:00 12/10/24 08:50 12/10/24 08:00 12/10/24 08:00 12/10/24 08:00 Narrative Exam General: AOx3, mild distress but able to speak full sentences, diaphoretic and on oxymask HEENT: NC/AT, mucous membranes moist, bilateral sclera anicteric Cardiovascular: regular rate and rhythm, S1/S2 present, no murmurs appreciated Pulmonary: clear to auscultation bilaterally, no rales/rhonchi/wheezes Abdominal: obese, soft, non-tender, non-distended, no rebound/guarding, normal bowel sounds present Musculoskeletal: normal ROM, no peripheral edema Skin: warm and dry, intact, no rashes Neuro: CN II-XII intact, no focal deficits Objective Labs 12/11/24 05:39 12/11/24 05:39 Labs: Laboratory Results - last 24 hr 12/09/24 12/10/24 05:36 05:35 WBC 17.4 H RBC 3.74 L Hgb 11.8 L Hct 35.4 L MCV 95 MCH 31.6 MCHC 33.3 RDW Std Deviation 48.2 H Plt Count 281 D Neut % (Auto) 89 H Lymph % (Auto) 6 L [place] % (Auto) 4 Eos % (Auto) 0 Baso % (Auto) 0 Neut # (Auto) 15.4 H Lymph # (Auto) 1.0 [place] # (Auto) 0.8 Eos # (Auto) 0.0 Baso # (Auto) 0.0 Immature Gran # (Auto) 0.19 H Absolute Nucleated RBC 0.00 Immature Gran % 1 H Nucleated RBC % 0 Sodium 137 Potassium 4.8 Chloride 98 Carbon Dioxide 32.0 H Anion Gap 7 BUN 18 Creatinine 1.2 Estim Creat Clear Calc 78.9 eGFR > 60 BUN/Creatinine Ratio 15 Glucose 169 H Calculated Osmolality 279 Calcium 9.7 Phosphorus 3.2 Magnesium 2.3 Free T4 1.43 Quality Measures Quality Measures VTE prophylaxis Advance care planning discussed with:: patient Assessment & Plan Assessment Current Active Medications: Generic Name Dose Route Start Last Admin Trade Name Freq PRN Reason Stop Dose Admin Acetaminophen 650 mg 12/08/24 11:51 Acetaminophen 325 Mg Tablet PO 01/07/25 11:50 Q6H PRN PAIN OR FEVER > 100.4 Albuterol/Ipratropium 3 ml 12/08/24 16:13 Albuterol/Ipratropium (Duoneb) Rt [place] 3 Ml Nebu INH 01/07/25 18:59 Q6HRRT PRN SHORTNESS OF BREATH Apixaban 5 mg 12/08/24 21:00 12/10/24 08:50 Apixaban 2.5 Mg Tablet PO 01/07/25 20:59 5 mg BID ZAHIDA Administration Atorvastatin Calcium 40 mg 12/08/24 21:00 12/09/24 21:04 Atorvastatin Calcium 20 Mg Tablet PO 01/07/25 20:59 40 mg HS ZAHIDA Administration Protocol Dexamethasone Sodium Phosphate 6 mg 12/08/24 12:30 12/10/24 08:49 Dexamethasone Sod Phos Inj 4 Mg/Ml Vial IV 12/18/24 12:29 6 mg DAILY ZAHIDA Administration Protocol Dextrose 25 ml 12/08/24 12:00 Dextrose 50%-Water Inj 50 Ml Syringe IV 01/07/25 11:59 Q15MIN PRN BG 50-70 responsive npo pt Dextrose 50 ml 12/08/24 12:00 Dextrose 50%-Water Inj 50 Ml Syringe IV 01/07/25 11:59 Q15MIN PRN BG <50 OR BG <70 & pt unresponsive Glucagon 1 mg 12/08/24 12:00 Glucagon Inj 1 Mg Vial IM Q15MIN PRN BG <70, and no IV access Hydralazine HCl 50 mg 12/10/24 14:00 Hydralazine Hcl 25 Mg Tablet PO 01/09/25 13:59 TID ZAHIDA Remdesivir 100 mg/ Sodium 100 mls @ 100 mls/hr 12/09/24 14:00 12/09/24 15:02 Chloride IV 12/12/24 14:59 100 mls/hr Q24H NR Administration Protocol Ceftriaxone Sodium/Dextrose 1 gm in 50 mls @ 100 mls/hr 12/08/24 12:23 12/10/24 08:49 Rocephin/D5w 1gm Iv Premix IV 12/15/24 12:22 100 mls/hr QDAY ZAIHDA Administration Azithromycin 500 mg/ Sodium 250 mls @ 250 mls/hr 12/09/24 09:00 12/10/24 08:50 Chloride IV 12/15/24 12:22 250 mls/hr QDAY ZAHIDA Administration Vancomycin HCl/Dextrose 300 mls @ 120 mls/hr 12/09/24 22:00 12/09/24 22:04 Vancomycin/D5w 1500 Mg Ivpb IV 12/16/24 21:59 120 mls/hr BID@1000,2200 ZAHIDA Administration Protocol Insulin Human Lispro 0 unit 12/09/24 21:43 12/10/24 07:45 Insulin Lispro (Admelog) 1 Unit/0.01 Ml Unit SC 01/08/25 07:29 3 unit ACHS ZAHIDA Administration Protocol Losartan Potassium 100 mg 12/09/24 09:00 12/10/24 08:50 Losartan Potassium 25 Mg Tablet PO 01/08/25 08:59 100 mg DAILY ZAHIDA Administration Protocol Ondansetron HCl 4 mg 12/08/24 11:51 Ondansetron Inj 2 Mg/Ml Inj 2 Ml IVP 01/07/25 11:50 Q6H PRN NAUSEA OR VOMITING Protocol Oxycodone HCl 30 mg 12/09/24 11:17 12/10/24 05:59 Oxycodone Hcl 5 Mg Ir Tab PO 12/14/24 10:37 30 mg Q6HR PRN Administration chronic pain Pantoprazole Sodium 40 mg 12/09/24 09:00 12/10/24 08:49 Pantoprazole Inj 40 Mg Vial IVP 01/08/25 08:59 40 mg QDAY ZAHIDA Administration Pharmacy Consult 1 each 12/09/24 12:00 Vancomycin Pharmacy To Dose 1 Each Each IV 01/08/25 11:59 QDAY PRN CONSULT Tramadol HCl 100 mg 12/09/24 11:45 12/10/24 05:01 Tramadol Hcl 50 Mg Tablet PO 12/14/24 11:44 100 mg TID [facility] Administration Plan Harris Ibrahim is a 74-year-old male with a past medical history of atrial fibrillation status post ablation and pacemaker on Eliquis, [id number] smoking history (quit 20 years ago), on nocturnal oxygen, chronic pain from previous spinal surgery, hypertension, hyperlipidemia who is admitted for acute hypoxic respiratory failure secondary to COVID-pneumonia. #Acute hypoxic respiratory failure secondary to #COVID-pneumonia #Superimposed Bacterial pneumonia #[id number] smoking history on nocturnal oxygen Last 3 days patient has experienced progressive shortness of breath, fever, chills, and sore throat. He states that his had been sick with COVID and denies any recent travel. In the ED, BP 179/86, respiratory rate 27, temp of 103.4 ?F, and saturating 95% on 15 L oxy mask. Labs showed WBC 15.1, Pro-Imer 1.06, lactate of 2.2. Bedside COVID test positive. CXR showed significant bilateral pneumonia, CTA chest showed extensive left lung and right base pneumonia but negative for PE. ? Remdesivir 200 mg x 1, 100 mg IV daily after ? Decadron 6 mg IV daily ? Rocephin and azithromycin for superimposed bacterial infection ? Follow-up blood cultures ? Supplemental oxygen as needed #Atrial fibrillation status post ablation and pacemaker Currently rate less than 110. 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 ? Eliquis 5 mg twice daily #Hyperglycemia A1c 5.7% ? SSI given that patient is on high-dose steroids #Hyperlipidemia ? Atorvastatin 40 mg HS #Chronic back pain ? Resumed home analgesics Hospital management: Disposition: on remdesivir/decadron and rocephin/azithro for AHRF secondary to COVID pneumonia Fluids: not indicated Diet: cardiac Lines: PIV DVT prophylaxis: eliquis 5 mg PO BID GI prophylaxis: PPI given that patient is on high-dose steroids CODE STATUS: full code ----- Plan discussed with attending physician Dr. Kemi Cee MD PGY-2 Internal Medicine Attending Provider Attestation/Addendum I attest that I was physically present for the evaluation, physical examination, lab and imaging review of the patient with the residents. I discussed the case with the residents and agree with the findings and plans of care as documented above. Max Mcmullen MD
[2024-12-10] MEDS: VANCOMYCIN/D5W 1500 MG IVPB 300 ML 120 MG IV (10:51)
[2024-12-10] MEDS: REMDESIVIR INJ 100 MG in SODIUM CHLORIDE 0.9% 100 ML IV (14:18)
--- NOTE | 2024-12-10 14:27 | PC.SS ---
Rounding Note: Blood cultures are pending.
[2024-12-10] MEDS: ATORVASTATIN CALCIUM 20 MG TABLET 40 MG PO (20:47)
--- NOTE | 2024-12-10 22:16 | PC.NURSE ---
-[id number] Spoke to lab about vanco trough level still pending after hour and half, lab stated their system is down specifically for vanco chemistry and stated system will probably be up in a couple hours. 2237-spoke to Dr. Lyon about vanco trough level still pending and lab system down for vanco and won't be back up in a couple hours, dr Lyon stated to hold med.
[2024-12-11] VITALS (12 sets, daily range): BP systolic 151–199; BP diastolic 86–104; PULSE 60–92; RESP 15–94; TEMP 36.1–36.6; O2SAT 94–97; BMI 43.0; BMI 43.2; BMI 14.0
[2024-12-11 00:38] LABS: Vancomycin,Trough 15.2 mcg/mL (5.0-10.0)
[2024-12-11] MEDS: oxyCODONE HCL 5 MG IR TAB 30 MG PO ×3 (01:09→13:28)
[2024-12-11] MEDS: hydrALAZINE INJ 20 MG/ML VIAL 10 MG IVP (01:10)
[2024-12-11 06:27] LABS: Basophils # (Auto) 0.1 Thou/mm3 (0.0-0.2); Basophils % (Auto) 1 % (0-2.5); Eosinophils # (Auto) 0.0 Thou/mm3 (0.0-0.5); Eosinophils % (Auto) 0 % (0-10); Hematocrit 39.1 % (41.0-53.0); Hemoglobin 13.0 g/dL (13.5-16.0); Immature Granulocytes Auto 0.52 Thou/mm3 (0.00-0.00); Lymphocytes # (Auto) 1.7 Thou/mm3 (1.0-4.8); Lymphocytes % (Auto) 10 % (10-50); Mean Corpuscular HGB Conc 33.2 g/dl (31.0-37.0); Mean Corpuscular Hemoglobin 31.0 pg (25.0-35.0); Mean Corpuscular Volume 93 fL (80-100); Monocytes # (Auto) 1.2 Thou/mm3 (0.0-0.8); Monocytes % (Auto) 7 % (0-12); Neutrophils # (Auto) 13.9 Thou/mm3 (1.8-7.7); Neutrophils % (Auto) 80 % (37-80); Nucleated Red Blood Cell # 0.00 Thou/mm3 (0.00-0.00); Nucleated Red Blood Cell % 0 /100 WBC (0); Platelet Count 343 Thou/mm3 (140-440); RDW Standard Deviation 47.1 fL (35.1-43.9); Red Blood Count 4.19 Miln/mm3 (4.50-5.90); White Blood Count 17.4 Thou/mm3 (3.8-10.6)
[2024-12-11 06:59] LABS: Anion Gap 7 (7-16); BUN/Creatinine Ratio 18 Ratio (12-20); Blood Urea Nitrogen 18 mg/dL (9-23); Calcium 10.3 mg/dL (8.3-10.6); Carbon Dioxide 32.7 mMol/L (20.0-31.0); Chloride 99 mMol/L (98-107); Creatinine (Component) 1.0 mg/dL (0.6-1.3); Estimated Creatinine Clearance 94.2 mL/min (>60); Glucose 155 mg/dL (74-106); Magnesium 2.3 mg/dL (1.6-2.6); Osmolality,Calculated 282 (275-295); Phosphorous 2.6 mg/dL (2.4-5.1); Potassium 4.2 mMol/L (3.4-5.1); Sodium 139 mMol/L (136-145); eGFR > 60 See Note
[2024-12-11 07:03] LABS: Aspartate Amino Transferase 28 U/L (0-34)
[2024-12-11 07:05] LABS: Alanine Aminotransferase 23 U/L (10-49)
[2024-12-11] MEDS: INSULIN LISPRO (AdmeLOG) 1 UNIT/0.01 ML UNIT SC ×2 (07:25→12:48)
[2024-12-11] MEDS: AZITHROMYCIN INJ 500 MG in SODIUM CHLORIDE 0.9% 250 ML 250 ML 250 MG IV (08:32)
[2024-12-11] MEDS: cefTRIAXone/D5w 1gm IV premix 1 GM/50 ML BAG IV (08:33)
[2024-12-11] MEDS: LOSARTAN POTASSIUM 25 MG TABLET 100 MG PO (08:33)
[2024-12-11] MEDS: DEXAMETHASONE SOD PHOS INJ 4 MG/ML VIAL 6 MG IV (08:34)
[2024-12-11] MEDS: APIXABAN 2.5 MG TABLET 5 MG PO (08:35)
[2024-12-11] MEDS: Vancomycin Inj 1,500 MG in SODIUM CHLORIDE 0.9% 500 ML 500 ML 120 MG IV (10:22)
--- NOTE | 2024-12-11 12:55 | PC.SS ---
Patient has d/c orders for today. Nursing called and indicated that patient verbalized he already has 02 at home. Patient's son is bringing 02 with him to pick up and delivery driver patient. D/c home today with family.
--- NOTE | 2024-12-11 13:35 | PC.NURSE ---
Dr. Mcmullen came by to see patient. wants to give patient one last dose of remdesivir before patient discharges. Once medication finished, will discharge.
--- NOTE | 2024-12-11 13:38 | ESDS_ITS ---
<Statement entered by Yousuf Velasquez MD - 12/12/24 07:23> Patient was examined with the team including attending physician. Note reviewed, I agree with the discharge plan as documented. - Yousuf Velasquez MD PGY 3 Disclaimer: The document may contain phonetic/typographic errors due to voice recognition software. Planned Discharge Date 12/11/24 DS: Providers Provider Date of admission: 12/08/24 11:52 Primary care physician: Irwin Wheeler MD Admitting Provider: Max Mcmullen MD Attending Provider on Admission: Max Mcmullen MD Consults: 12/11/24 08:39 Referral Physical Therapy Urgent Comment: Physician Instructions: Instructions: in prepration for discharge Attending Provider on DC: Max Mcmullen MD Discharging Provider: Kerry Roque DO DS: Diagnosis Problem List Completed Was Problem List Reviewed/Reconciled?: Yes Hospital Course Hospital Course Hospital course: Hospital Course: Harris Ibrahim is a 74-year-old male with a past medical history of atrial fibrillation status post ablation and pacemaker on Eliquis, [id number]-inqe smoking history (quit 20 years ago), on nocturnal oxygen, chronic pain from previous spinal surgery, hypertension, hyperlipidemia who presented on 12/08 for worsening shortness of breath, fever, chills, and sore throat for three days.? In the ED, BP 179/86, respiratory rate 27, temp of 103.4 ?F, and saturating 95% on 15 L oxy mask.? Labs showed WBC 15.1, Pro-Imer 1.06, lactate of 2.2.? Bedside COVID test positive.? CXR showed significant bilateral pneumonia, CTA chest showed extensive left lung and right base pneumonia but negative for PE. Admitted for acute hypoxic respiratory failure secondary to COVID-pneumonia. Started treatment with Remdesivir 200 mg x 1, followed by 100 mg IV daily, Decadron 6 mg IV daily, and Rocephin and azithromycin for superimposed bacterial infection on 12/08. Also resumed patient's home oxycodone and tramadol but at lower doses for this time. Resumed hydralazine 50mg bid and losartan 100mg daily. Fever subsided, and patient stayed afebrile.? WBC 17.2, and 17.4 and glucose continued to be elevated likely from being on high dose steroids. B ctx grew GPC with staphyloccocus in 1 of the first 2 bottles, and added vancomycin 12/09, but showed no growth on repeat cultures.? Oxygen requirements decreased from 7L oxymask, to 5L via NC (12/09), and weaned to room air on 12/10, saturating 94%. On 12/11, patient was satting 88 to 91% with sitting and standing in room air. Recommended to use oxygen at home. Patient had been afebrile and completed 4 days of treatment with remdesivir, Decadron, Rocephin, and azithromycin. At the time of discharge, patient is medically stable and deemed safe to return to his/her previous state of living. Admission diagnosis: 5 days of treatment #Acute hypoxemic respiratory failure secondary to #COVID-pneumonia # Superimposed bacterial pneumonia #75-quzv-wmal smoking history on nocturnal oxygen #Atrial fibrillation status post ablation and pacemaker placement #Hyperglycemia #Hyperlipidemia #Chronic back pain Discharge instructions: * Follow-up with Primary doctor within 1-2 weeks of discharge. * Start losartan 100 mg daily and nifedipine 10 mg 3 times daily for blood pressure control. Stop previously prescribed olmesartan 20 mg daily. * Continue to take dexamethasone 6 mg daily for 5 more days for continued treatment of your COVID-pneumonia. * Continue to take your home medications Eliquis 5 mg every 12 hour, hydralazine 50 mg twice daily, oxycodone 5 times daily, prednisone 10 mg daily, rosuvastatin 10 mg daily, and tramadol extended release daily. * You may follow-up with one of our residents doctor with the [facility] at the address below. * Continue taking medications as prescribed below. * Return to Emergency Room if symptoms persist, worsen, or new symptoms develop. This case was discussed with my attending physician, Dr. Mcmullen, and senior resident Dr Velasquez. Kerry Roque, DO PGY I Status at Discharge Cognitive/behavioral status at discharge: Stable Functional status at discharge: independent ambulation Overall status at discharge: patient is back to baseline Time Spent with Patient Time attestation: Total time spent providing and/or coordinating discharge services: 34 min Time spent: Greater than 30 minutes Home Health Home Health Referral Orders: 12/11/24 11:58 Home Health Referral Routine Reason For Exam: COVID pneumonia Home-Bound The patient must either because of illness or injury, need the aid of supportive devices such as crutches, canes, wheelchairs, and walkers; the use of special transportation; or the assistance of another person in order to leave their place of residence; OR have a condition such that leaving his or her home is medically contraindicated. In addition, the patient also meets the following criteria: patient is normally unable to leave the home and leaving home requires considerable taxing effort. Addendum to Home Health Certification Practitioner's Certification: I certify that the patient has been under my care in the hospital and the care of attending physician (see below). We had a pjgj-kq-[id number] encounter on (see date below). My clinical findings indicate that the patient is home bound per the above criteria and the Home Health Services noted in these orders are medically necessary. The primary reason for the [id number] encounter is related to the fact that the patient requires home health services. Date Certifying Ovpy-rs-Txtk Physician Encounter: 12/08/24 Physician's Name who will Assume Oversight for Services: Irwin Wheeler Physician's Phone No.who will Assume Oversight for Service: LAB SUPPORT TECHNICIAN - Community Resources: No PT to Evaluate: Yes PT to evaluate and provide a treatmnet plan to increase patient's mobility and strength. Wound Care: No IV Therapy: No RN Safety Evaluation: Yes RN to evaluate and create a plan of care that will produce positive outcomes. Palliative Treatment: No Palliative treatment and evaluate the need for hospice. Home Health Aide - Personal Care: No Home Health Aide to assist with any ADL's. Exam Vital Signs Temp Pulse Resp BP Pulse Ox O2 Del Method O2 Flow Rate 97.0 F 62 16 151/86 H 95 Room Air 3 12/11/24 08:00 12/11/24 08:33 12/11/24 08:00 12/11/24 08:33 12/11/24 08:00 12/11/24 08:00 12/11/24 04:00 Narrative Exam Narrative Exam General: AOx3, mild distress but able to speak full sentences, diaphoretic and on oxymask HEENT: NC/AT, mucous membranes moist, bilateral sclera anicteric Cardiovascular: regular rate and rhythm, S1/S2 present, no murmurs appreciated Pulmonary: clear to auscultation bilaterally, no rales/rhonchi/wheezes Abdominal: obese, soft, non-tender, non-distended, no rebound/guarding, normal bowel sounds present Musculoskeletal: normal ROM, no peripheral edema Skin: warm and dry, intact, no rashes Neuro: CN II-XII intact, no focal deficits Discharge Plan Plan Patient Disposition: Home w/HOME HEALTH Patient condition on transfer: Stable Care Plan Goals: * Follow-up with Primary doctor within 1-2 weeks of discharge. * Start losartan 100 mg daily and nifedipine 10 mg 3 times daily for blood pressure control. Stop previously prescribed olmesartan 20 mg daily. * Continue to take dexamethasone 6 mg daily for 5 more days for continued treatment of your COVID-pneumonia. * Continue to take your home medications Eliquis 5 mg every 12 hour, hydralazine 50 mg twice daily, oxycodone 5 times daily, prednisone 10 mg daily, rosuvastatin 10 mg daily, and tramadol extended release daily. * You may follow-up with one of our residents doctor with the [facility] at the address below. * Continue taking medications as prescribed below. * Return to Emergency Room if symptoms persist, worsen, or new symptoms develop. [facility] [address] [place] [address] Prescriptions/Referrals Prescriptions/Med Rec: New losartan 100 mg tablet 100 mg PO QDAY 30 Days Qty: 30 0RF nifedipine 10 mg capsule 10 mg PO TID 30 Days Qty: 90 0RF dexamethasone 6 mg tablet 6 mg PO QDAY 5 Days Qty: 5 0RF Continued rosuvastatin [Crestor] 10 mg Tablet 10 mg PO QDAY Eliquis 5 mg tablet 5 mg PO Q12H oxycodone 30 mg tablet 30 mg PO 5 TIMES DAILY tramadol 300 mg tablet extended release 24 hr 300 mg PO Q24H hydralazine 50 mg tablet 50 mg PO BID prednisone 10 mg tablet 10 mg PO QDAY Discontinued olmesartan 20 mg tablet 20 mg PO DAILY Referrals: Irwin Wheeler MD [Primary Care Provider, Family Practice] Patient/Caregiver Discharge Instructions Other Discharge Activity Instructions:: Follow-up with Primary doctor within 1-2 weeks of discharge. ? Start losartan 100 mg daily and nifedipine 10 mg 3 times daily for blood pr essure control. Stop previously prescribed olmesartan 20 mg daily. ? Continue to take dexamethasone 6 mg daily for 5 more days for continued treatment of your COVID-pneumonia. ? Continue to take your home medications Eliquis 5 mg every 12 hour, hydralazine 50 mg twice daily, oxycodone 5 times daily, prednisone 10 mg daily, rosuvastatin 10 mg daily, and tramadol extended release daily. ? You may follow-up with one of our residents doctor with the [facility] at the address below. ? Continue taking medications as prescribed below. ? Return to Emergency Room if symptoms persist, worsen, or new symptoms develop. [facility] [address] [place] [address] Education Materials: COVID-19 Home Care, COVID-19 and the Flu What's ..., Communicating About Pain Print Language: Norwegian Stand Alone Forms: Stephy Award Info., Patient Portal Info Letter Discharge Order Discharge Orders: Discharge (Routine); Ordered 12/11/24 Ordered By: Yousuf Velasquez Quality Discharge Quality Measures VTE prophylaxis Attestestation MD Attestation I attest that I was physically present for the evaluation, physical examination, lab and imaging review of the patient with the residents. I discussed the case with the residents and agree with the findings and plans of care as documented above. Max Mcmullen MD
[2024-12-11] MEDS: REMDESIVIR INJ 100 MG in SODIUM CHLORIDE 0.9% 100 ML IV (14:20)
--- NOTE | 2024-12-13 08:56 | PC.CC ---
Addendum entered by Bella Vega RN 12/13/24 11:07: 1100: received call from [facility], he stated they can not open this patient because of an open workmans comp case. Informed Dr. Mcmullen of situation. I spoke to Harris, he stated he does not want HH. will close out case. Addendum entered by Bella Vega RN 12/13/24 08:59: [facility] accepted and booked, SOC 12/14/24 Original Note: HH ref sent out, waiting for response
== END 2024-12-11 15:51 | disposition home health service (06) | DRG 177 ==
LOC: SERX 07:41 → SERHOLD 12:33 → S2NX 15:33
PROVIDERS: Admitting Provider Student in an Organized Health Care Education/Training Program; Emergency Provider Emergency Medicine; PCP Family Medicine; Visit Provider Student in an Organized Health Care Education/Training Program
DX: U07.1 COVID-19 (principal); J12.82 Pneumonia due to coronavirus disease 2019; J96.01 Acute respiratory failure with hypoxia; J15.9 Unspecified bacterial pneumonia; I48.91 Unspecified atrial fibrillation; E78.5 Hyperlipidemia, unspecified; I50.9 Heart failure, unspecified; R73.9 Hyperglycemia, unspecified; I11.0 Hypertensive heart disease with heart failure; G89.29 Other chronic pain; Z95.0 Presence of cardiac pacemaker; Z87.891 Personal history of nicotine dependence; E11.65 Type 2 diabetes mellitus with hyperglycemia; Z79.01 Long term (current) use of anticoagulants; Z79.899 Other long term (current) drug therapy; Z99.81 Dependence on supplemental oxygen; T38.0X5A Adverse effect of glucocorticoids and synthetic analogues, initial encounter
CPT/HCPCS: 36415; 71045; 71275; 76705; 80048; 80053; 80061; 80202; 81001; 83036; 83605; 83735; 83880; 84100; 84145; 84439; 84443; 84450; 84460; 84484; 85025; 85610; 85730; 87040; 87077; 87086; 87186; 87400; 87811; 96365; 96366; 96375; 97161; 99285; A4649; J0248; J0360; J0456; J0696; J1100; J1815; J2270; J2470; J2543; J3373; J3374; J7050; J7999; Q9967; A9270

== ENCOUNTER → 2025-02-17 | Outpatient (CLI) | payer MEDICARE, BC, SELFPAY ==
--- NOTE | 2025-02-17 13:28 | EKG_ITS ---
[facility] Test Date: 2025-02-17 Pat Name: GEOVANNI KING Department: Room: - Gender: Male White Kid Buffer: ADELINA : 1950 Requested By: Irwin Wheeler Order Number: [id number] Reading MD: Irwin Wheeler Measurements Intervals [place] Rate: 60 P: 95 MS: 175 QRS: 260 QRSD: 158 T: 65 QT: 438 QTc: 438 Interpretive Statements ELECTRONIC ATRIAL PACEMAKER ELECTRONIC VENTRICULAR PACEMAKER ABNORMAL RHYTHM ECG Compared to ECG 12/03/2019 09:37:27 Sinus rhythm no longer present First degree AV block no longer present Left-axis deviation no longer present Intraventricular conduction delay no longer present Left ventricular hypertrophy no longer present /store/S0/[id number]
== END | disposition home or self-care (01) ==
LOC: SEKG 13:15
PROVIDERS: PCP Family Medicine; Referring Provider Family Medicine; Visit Provider Family Medicine
DX: I48.91 Unspecified atrial fibrillation (principal)
CPT/HCPCS: 93005